=== PATIENT | female | born 1930 | race Caucasian/White ===

== ENCOUNTER 2016-10-14 10:35 | Emergency (ER) | payer MEDICARE, BC, OTHER ==
[~2016-10-14 10:35] MED LIST: LO-DOSE ASPIRIN81 MG PO; SYNTHROID PO; SYNTHROID100 MCG PO
[2016-10-14] MEDS ORDERED: TOPROL XL50 M1 PO (10:45)
[2016-10-14] MEDS ORDERED: ISOSORBIDE MONO30 M4 PO (10:46)
[2016-10-14] MEDS ORDERED: PLAVIX75 M1 PO (10:46)
[2016-10-14] MEDS ORDERED: SKELAXIN800 M3 PO (10:47)
[2016-10-14] MEDS ORDERED: ULTRAM50 M1 PO (10:47)
[2016-10-14] MEDS ORDERED: SYNTHROID75 MC1 PO (10:48)
[2016-10-14] MEDS ORDERED: PROTONIX40 M2 PO (10:48)
[2016-10-14] MEDS ORDERED: ASPIRIN EC81 MG PO (10:56)
[2016-10-14 11:00] LABS: BASO % 0.6 % (0-2); BASO ABSOLUTE COUNT 0.1 tho/cmm (0.0-0.2); EOSINOPHIL ABSOLUTE COUNT 0.1 tho/cmm (0.0-0.7); HCT-HEMATOCRIT 42.1 % (34.0-49.0); IMMATURE GRANULOCYTES ABSOLUTE 0.02 tho/cmm (0-0.03); IMMATURE GRANULOCYTES PERCENT 0.2 % (0-0.3); LYMPH ABSOLUTE COUNT 3.7 tho/cmm (0.8-4.5); MCHC MEAN CORPUSCULAR HGB CONC 33.3 % (32.0-36.0); MCV (MEAN CELL VOLUME) 102.2 fl (82.0-96.0); MEAN PLATELET VOLUME 9.8 cmc (9.4-12.4); MONO % 9.9 % (0-12); MONOCYTE ABSOLUTE COUNT 0.9 tho/cmm (0.0-1.2); NEUTROPHIL ABSOLUTE COUNT 4.3 tho/cmm (1.6-8.0); NEUTROPHIL-AUTOMATED 4.3 tho/cmm (1.6-8.0); NEUTROPHILS % 47.3 % (40-80); PLATELET COUNT 253 tho/cmm (150-450); RED BLOOD COUNT 4.12 mil/cmm (4.00-5.20); RED CELL DISTRIBUTION WIDTH 16.9 % (12.4-16.4); WHITE BLOOD COUNT 9.1 tho/cmm (4.0-10.0)
[2016-10-14 11:20] LABS: ANION GAP 12 mmol/L (0-20); BLOOD UREA NITROGEN 14 mg/dl (6-24); CALCIUM 9.7 mg/dl (8.5-10.5); CARBON DIOXIDE-VENOUS 25 mmol/L (22-32); CHLORIDE 105 mmol/l (96-110); CREATININE 0.93 mg/dl (0.50-1.10); GLUCOSE 120 mg/dL (70-110); SODIUM 138 mmol/L (135-145); eGFR VALUE FOR BLACK 64 mL/Min
[2016-10-14] MEDS ORDERED: ROSUVASTATIN CAL5 MG PO (11:28)
[2016-10-14] MEDS ORDERED: NORVASC2.5 M1 PO (11:29)
== END 2016-10-14 14:18 ==
LOC: EDMED 10:35
PROVIDERS: Emergency Medicine
DX: R07.89 Other chest pain (principal); E78.5 Hyperlipidemia, unspecified; Z90.49 Acquired absence of other specified parts of digestive tract; Z90.710 Acquired absence of both cervix and uterus
CPT/HCPCS: J7030